=== PATIENT | female | born 1945 | race Caucasian/White ===

== ENCOUNTER 2018-12-27 10:28 | Inpatient (IN) | payer MEDICARE, BC ==
[2018-12-17 13:17] LABS: BASOPHILS % (AUTO) 0.5 % (0-1); EOSINOPHILS # (AUTO) 0.1 X10'3 (0-0.9); EOSINOPHILS % (AUTO) 1.2 % (0-6); LYMPHOCYTES # (AUTO) 2.2 X10'3 (1.1-4.8); LYMPHOCYTES % (AUTO) 40.1 % (21-51); MEAN CORPUSCULAR HEMOGLOBIN 31.2 PG (27.0-31.0); MEAN CORPUSCULAR HGB CONC 33.5 g/dL (33.0-36.5); MEAN CORPUSCULAR VOLUME 93.3 FL (78-98); MEAN PLATELET VOLUME 8.3 FL (7.4-10.4); MONOCYTES # (AUTO) 0.7 X10'3 (0-0.9); MONOCYTES % (AUTO) 12.2 % (2-12); NEUTROPHILS # (AUTO) 2.5 X10'3 (1.8-7.7); PRE OP HEMATOCRIT 43.3 % (35.0-45.0); PRE OP HEMOGLOBIN 14.5 g/dL (12.0-16.0); PRE OP PLATELET COUNT 207 X10'3 (140-440); RED BLOOD COUNT 4.65 X10'6 (4.20-5.60); RED CELL DISTRIBUTION WIDTH 13.6 % (11.5-14.5)
[2018-12-17 13:31] LABS: ALBUMIN 3.4 G/DL (3.4-5.0); ALBUMIN/GLOBULIN RATIO 0.7 (1.1-1.5); ALKALINE PHOSPHATASE 65 IU/L (46-116); BLOOD UREA NITROGEN 15 MG/DL (7-18); BUN/CREATININE RATIO 23.4 (6.6-38.0); CHLORIDE 105 MMOL/L (99-107); CREATININE 0.64 MG/DL (0.40-0.90); PRE OP ALT 38 U/L (30-65); PRE OP ANION GAP 8 (8-16); PRE OP AST 27 U/L (10-37); PRE OP BILIRUB, TOTAL 0.2 MG/DL (0.0-1.0); PRE OP GLUCOSE 74 MG/DL (70-104); PRE OP PROTIME 10.4 SECONDS (9.0-12.0); PRE OP SODIUM 141 MMOL/L (135-145); TOTAL CARBON DIOXIDE 28.2 MMOL/L (24-32); TOTAL PROTEIN 8.1 G/DL (6.4-8.2); eGFR 90 ML/MIN
[~2018-12-27] VITALS: Ht 157.5 cm; Wt 79.8 kg
[2018-12-27] VITALS (17 sets, daily range): BP systolic 112–160; BP diastolic 64–93
[~2018-12-27 10:28] MED LIST: ESOM40CA49 PO
[2018-12-27] MEDS ORDERED: cefazolin/dext.iso 2gm/50ml 50 ML IV ONE (12:00)
[2018-12-27] MEDS ORDERED: famotidine 20mg tablet PO ONE (12:00)
[2018-12-27] MEDS ORDERED: ringers solution, lacted 1,000 ML IV SCH ×2 (12:00→15:04)
[2018-12-27] MEDS ORDERED: VANCOMYCIN INJ 1000 MG in NORMAL SALINE 250ml IV.SOLN IV ONE (12:00)
[2018-12-27] MEDS ORDERED: MIDAZolam 5mg/5ml vial ONE (12:35)
[2018-12-27] MEDS ORDERED: ROPIVAcaine 0.5% (5mg/ml) 30ml vial ONE ×3 (12:36→15:33)
[2018-12-27] MEDS ORDERED: ketorolac trometh. 30mg/ml inj. ONE (12:36)
[2018-12-27] MEDS ORDERED: fentaNYL /PF 50mcg/ml 5ml ampule ONE (12:38)
[2018-12-27] MEDS ORDERED: LIDOcaine 2% (20mg/ml) 5ml vial ONE (12:39)
[2018-12-27] MEDS ORDERED: propofol inj 20 ML IV ONE (12:39)
[2018-12-27] MEDS ORDERED: sevoflurane 250ml liquid IH ONE (13:26)
[2018-12-27] MEDS ORDERED: tranexamic acid inj. 800 MG in normal saline 100ml IV soln 100 ML IV ONE ×6 (14:00→21:10)
[2018-12-27] MEDS ORDERED: ketamine 50mg/5ml syringe ONE (14:55)
[2018-12-27] MEDS ORDERED: ROPIVAcaine 0.2%/PF PAIN PUMP 550 ML IJ SCH (15:04)
[2018-12-27] MEDS ORDERED: ondansetron/PF 4mg/2ml inj IV PRN ×2 (15:05→16:05)
[2018-12-27] MEDS ORDERED: HYDROmorphone inj. 0.5 MG/0.5 ML DISP.SYRIN IV PRN ×2 (15:05→16:05)
[2018-12-27] MEDS ORDERED: morphine 4 MG/ML inj SYRINge IV PRN (15:05)
[2018-12-27] MEDS ORDERED: ePHEDrine 50MG/ML INJ. ONE (15:28)
[2018-12-27] MEDS ORDERED: dexamethasone sod phosphate 4mg/ml inj. ONE (15:29)
[2018-12-27] MEDS ORDERED: ondansetron/PF 4mg/2ml inj ONE (15:29)
--- NOTE | 2018-12-27 15:43 | NUR ---
Received from OR via , accompanied by Anesthesiologist DR YAO and report given by Anesthesiolgist. AWAKENS TO VOICE. VITALS STABLE. DRESSING DI. KUMAR PAIN. RUE IN SIMPLE SLING. FINGERS WARM AND PINK.
[2018-12-27] MEDS ORDERED: HYDROmorphone 1 mg/ml syringe IV PRN (16:05)
[2018-12-27] MEDS ORDERED: magnesium hydroxide 30ml (MOM) UD suspension PO PRN (16:05)
[2018-12-27] MEDS ORDERED: acetaminophen 325mg tablet PO PRN (16:05)
[2018-12-27] MEDS ORDERED: oxyCODONE IR 5mg (immed. release) tablet PO PRN ×2 (16:05)
[2018-12-27] MEDS ORDERED: diphenhydrAMINE 25mg capsule PO PRN ×2 (16:05)
[2018-12-27] MEDS ORDERED: bisacodyl 10mg suppository rectal RC PRN (16:05)
--- NOTE | 2018-12-27 16:19 | NUR ---
Patient in room PAS IN 900. I have received report from Luis in recovery, and had the opportunity to ask questions and assume patient care.
--- NOTE | 2018-12-27 16:23 | NUR ---
Report called to receiving nurse. Transferred via BED Belongings . Special Issues communicated to receiving nurse.AWAKE AND ORIENTED. VITALS STABLE. DRESSING DI. KUMAR WATSON. TO ORTHO RM [id number] AT THIS TIME.
--- NOTE | 2018-12-27 18:21 | NUR ---
Problems reprioritized. Patient report given, questions answered & plan of care reviewed with Berna.
[2018-12-27] MEDS: acetaminophen 325mg tablet PO SCH (19:39)
[2018-12-27] MEDS ORDERED: vancomycin/NS 1 GM ADD-VANTAGE 250 ML IV SCH (20:00)
[2018-12-27] MEDS ORDERED: sennosides 8.6mg tablet PO SCH (21:00)
[2018-12-28] MEDS: potassium cl 20mEq in 1/2 NS 1,000 ML IV SCH ×2 (00:02→00:35)
[2018-12-28] MEDS: ceFAZolin 1GM/D5W- ADD-VANTAGE 50 ML IV SCH ×2 (00:35→07:22)
[2018-12-28 02:00] VITALS: BP 102/56
[2018-12-28] MEDS: acetaminophen 325mg tablet PO SCH ×2 (02:28→07:22)
[2018-12-28 06:00] VITALS: BP 115/62
--- NOTE | 2018-12-28 06:20 | NUR ---
Patient in room ORTHO 4022. I have received report from Berna FONSECA and had the opportunity to ask questions and assume patient care.
[2018-12-28 06:50] LABS: ANION GAP 8 (8-16); CHLORIDE 107 MMOL/L (99-107); POTASSIUM 4.3 MMOL/L (3.5-5.1); SODIUM 139 MMOL/L (135-145); TOTAL CARBON DIOXIDE 23.6 MMOL/L (24-32)
[2018-12-28 06:51] LABS: BASOPHILS % (AUTO) 0.1 % (0-1); EOSINOPHILS % (AUTO) 0 % (0-6); HEMATOCRIT 36.9 % (35.0-45.0); HEMOGLOBIN 12.5 g/dl (12.0-16.0); LYMPHOCYTES # (AUTO) 0.9 X10'3 (1.1-4.8); LYMPHOCYTES % (AUTO) 8.5 % (21-51); MEAN CORPUSCULAR HEMOGLOBIN 31.7 PG (27.0-31.0); MEAN CORPUSCULAR HGB CONC 33.8 g/dL (33.0-36.5); MEAN CORPUSCULAR VOLUME 93.8 FL (78-98); MEAN PLATELET VOLUME 8.6 FL (7.4-10.4); MONOCYTES # (AUTO) 0.9 X10'3 (0-0.9); MONOCYTES % (AUTO) 7.9 % (2-12); NEUTROPHILS # (AUTO) 9.2 X10'3 (1.8-7.7); NEUTROPHILS % (AUTO) 83.5 % (42-75); PLATELET COUNT 181 X10'3 (140-440); RED BLOOD COUNT 3.94 X10'6 (4.20-5.60); RED CELL DISTRIBUTION WIDTH 13.7 % (11.5-14.5)
[2018-12-28] MEDS ORDERED: pantoprazole 40mg Tablet.DR PO SCH (07:30)
[2018-12-28] MEDS ORDERED: aspirin 325mg tablet PO SCH (08:30)
[2018-12-28 10:00] VITALS: BP 115/65
--- NOTE | 2018-12-28 15:06 | NUR ---
Patient stable for discharge home today with and daughter. All instructions given to patient and family. On-Q pump education provided. IV out and all belongings sent with patient. Dr. Lima wrote pain med prescription and it was given to patient.
[2018-12-28] MEDS ORDERED: celeCOXIB 100mg capsule PO SCH (20:00)
[2018-12-29] MEDS ORDERED: acetaminophen 325mg tablet PO PRN (16:05)
== END 2018-12-28 14:10 | disposition home or self-care (01) | DRG 483 ==
LOC: PAS IN 10:28 → EDSTATUS 14:00 → ORTHO 4S 16:25
PROVIDERS: ADMIT Orthopaedic Surgery; ATTEND Orthopaedic Surgery
PROC: 3E0T3BZ Introduction of Anesthetic Agent into Peripheral Nerves and Plexi, Percutaneous Approach (ICD-10-PCS; 2018-12-27)
PROC: 0RRJ00Z Replacement of Right Shoulder Joint with Reverse Ball and Socket Synthetic Substitute, Open Approach (ICD-10-PCS; principal; 2018-12-27 13:26)
DX: M75.121 Complete rotator cuff tear or rupture of right shoulder, not specified as traumatic (principal); M19.011 Primary osteoarthritis, right shoulder; K21.9 Gastro-esophageal reflux disease without esophagitis; M65.811 Other synovitis and tenosynovitis, right shoulder; Z98.891 History of uterine scar from previous surgery; Z72.89 Other problems related to lifestyle; Z79.899 Other long term (current) drug therapy
CPT/HCPCS: 36415; 80051; 80053; 82948; 85025; 85610; 85730; 87081; 97110; 97116; 97161; A4215; A4565; A4618; A7000; C1776; G0378; J0690; J1100; J1885; J2001; J2250; J2405; J2704; J2795; J3010; J3370; J3480; J7120

== ENCOUNTER 2022-09-30 10:20 | Emergency (ER) | payer MEDICARE, BC ==
[~2022-09-30] VITALS: Ht 157.5 cm; Wt 80.0 kg
[~2022-09-30 10:20] MED LIST changes: +ASCO100T12 PO; +CALCIUM PO; +ERGO400C PO; -ESOM40CA49 PO; +VITA-268 PO; +VITA400T10 PO; +VITA800012 PO
[2022-09-30 10:29] VITALS: BP 139/88
[2022-09-30] MEDS ORDERED: ibuprofen 200mg tablet PO ONE (12:00)
== END 2022-09-30 12:13 | disposition home or self-care (01) ==
LOC: ER 10:20
DX: M25.561 Pain in right knee (principal); M65.80 Other synovitis and tenosynovitis, unspecified site
CPT/HCPCS: 73564; 99283; A6449